=== PATIENT | female | born 1940 | race Caucasian/White ===

== ENCOUNTER 2020-07-20 06:50 | Inpatient (IN) ==
[2020-07-13 11:13] LABS: Basophils # 0.1 10*3/uL (0.0-0.2); Eosinophils # 0.2 10*3/uL (0.0-0.87); Eosinophils % 3.5 % (0.00-10.9); Hematocrit 37.7 VOL% (35.7-47.0); Hemoglobin 12.3 GM/DL (12.0-16.0); Immature Granulocytes % 1.2 %; Immature Granulocytes Absolute 0.07 #; Lymphocytes # 2.1 10*3/uL (1.4-4.0); Lymphocytes % 35.8 % (21.3-54.2); Mean Corpuscular HGB Conc 32.6 GM/DL (32-36); Mean Corpuscular Volume 91.5 FL (87-102); Mean Platelet Volume 11.6 FL (9.6-12.0); Monocytes % 9.4 % (1.7-12.7); Neutrophils % 49.1 % (38.7-73.9); Platelet Count 202 T/CUMM (130-400); Red Blood Count 4.12 MC/CUMM (3.8-5.5); Red Cell Distribution Width 14.4 % (9.3-17.3); White Blood Count 5.8 T/CUMM (4-12)
[2020-07-13 11:53] LABS: Calcium 9.1 MG/DL (8.5-10.1); Osmolality,Calculated 283.1 MOS/KG (273-304)
[~2020-07-20 06:50] MED LIST: HEPARIN/NACL 0.9% 2 UNITS/ML 500 ML IV ONE; NITROGLYCERIN DRIP 50 MG/250 ML BOTTLE IV ONE; PHENYLEPHRINE DRIP 20 MG/250 ML PREMIX IV ONE; ceFAZolin 1,000 MG in SYRINGE 1 EACH IV ONE
[2020-07-20] MEDS ORDERED: FAMOTIDINE 20 MG TABLET PO ONE (07:26)
[2020-07-20] MEDS ORDERED: DIAZEPAM 5 MG TABLET PO ONE (07:26)
[2020-07-20] MEDS: LACTATED RINGERS 1,000 ML IV SCH ×4 (07:49→22:40)
[2020-07-20] MEDS ORDERED: FAMOTIDINE 20 MG TABLET ONE (07:52)
[2020-07-20] MEDS ORDERED: DIAZEPAM 5 MG TABLET ONE (07:52)
[2020-07-20] MEDS ORDERED: ceFAZolin 1,000 MG VIAL ONE (07:55)
[2020-07-20] MEDS ORDERED: HEPARIN 5,000 UNIT/1 ML VIAL ONE (08:18)
[2020-07-20] MEDS ORDERED: LIDOCAINE 1% 20 ML VIAL ONE (08:19)
[2020-07-20] MEDS ORDERED: TISSUE ADHESIVE 1 EACH APPLICATOR TOP ONE (08:19)
[2020-07-20] MEDS ORDERED: DEXAMETHASONE 4 MG/1 ML VIAL ONE ×2 (08:22→10:44)
[2020-07-20] MEDS ORDERED: ROPIVACAINE 0.5% 30 ML VIAL ONE (08:22)
[2020-07-20] MEDS ORDERED: GLUCAGON 1 MG VIAL IM PRN (10:29)
[2020-07-20] MEDS ORDERED: NALOXONE 0.4 MG/ML VIAL IV PRN (10:29)
[2020-07-20] MEDS ORDERED: DEXTROSE 50% 25 GM/50 ML VIAL IV PRN (10:29)
[2020-07-20] MEDS ORDERED: HYDROmorphone 2 MG/1 ML VIAL IV PRN ×2 (10:29)
[2020-07-20] MEDS ORDERED: PROMETHAZINE 25 MG/1 ML VIAL IM PRN (10:29)
[2020-07-20] MEDS ORDERED: oxyCODONE/ACETAMINOPHEN 5-325 MG TABLET PO PRN ×2 (10:29)
[2020-07-20] MEDS ORDERED: ONDANSETRON 4 MG/2 ML VIAL IV PRN (10:29)
[2020-07-20] MEDS ORDERED: NITROPRUSSIDE 100 MG in DEXTROSE 5% 250 ML IV SCH (10:30)
[2020-07-20] MEDS ORDERED: PHENYLEPHRINE DRIP 40 MG/250 ML PREMIX IV SCH (10:30)
[2020-07-20] MEDS ORDERED: propofoL 200 MG/20 ML VIAL IV ONE (10:43)
[2020-07-20] MEDS ORDERED: ETOMIDATE 40 MG/20 ML VIAL IV ONE (10:44)
[2020-07-20] MEDS ORDERED: DESFLURANE 1 UNIT/15 MINUTE INH ONE (10:44)
[2020-07-20] MEDS ORDERED: LIDOCAINE 2% 5 ML VIAL ONE (10:44)
[2020-07-20] MEDS ORDERED: GLYCOPYRROLATE 0.4 MG/2 ML VIAL ONE (10:44)
[2020-07-20] MEDS ORDERED: fentaNYL 100 MCG/2 ML VIAL ONE (10:44)
[2020-07-20] MEDS ORDERED: NEOSTIGMINE 10 MG/10 ML VIAL ONE (10:45)
[2020-07-20] MEDS ORDERED: HEPARIN 10,000 UNIT/10 ML VIAL ONE (10:45)
[2020-07-20] MEDS ORDERED: PROTAMINE SULFATE 50 MG/5 ML VIAL IV ONE (10:45)
[2020-07-20] MEDS ORDERED: ROCURONIUM 100 MG/10 ML VIAL IV ONE (10:45)
[2020-07-20] MEDS ORDERED: NITROPRUSSIDE 50 MG/2 ML VIAL ONE ×2 (14:20)
[2020-07-20] MEDS ORDERED: CLOPIDOGREL 75 MG TABLET PO SCH (21:00)
[2020-07-20] MEDS ORDERED: amLODIPine 5 MG TABLET PO SCH (21:00)
[2020-07-20] MEDS ORDERED: carvediloL 12.5 MG TABLET PO SCH (21:00)
[2020-07-20] MEDS ORDERED: SERTRALINE 100 MG TABLET PO SCH (21:00)
[2020-07-20] MEDS ORDERED: ASPIRIN EC 81 MG TABLET PO SCH (21:00)
[2020-07-21] MEDS: LACTATED RINGERS 1,000 ML IV SCH (07:38)
[2020-07-21] MEDS ORDERED: ASPIRIN EC 81 MG TABLET PO SCH (09:00)
[2020-07-21] MEDS ORDERED: CLOPIDOGREL 75 MG TABLET PO SCH (09:00)
[2020-07-21 16:30] VITALS: BP 135/59
== END 2020-07-21 17:22 | disposition home or self-care (01) | DRG 39 ==
LOC: N.SDSINP 06:50 → N.CVR 14:04 → N.4E 07-21 13:16
PROVIDERS: ADMIT Surgery; ATTEND Surgery